=== PATIENT | female | born 1980 | race Caucasian/White ===

== ENCOUNTER 2016-08-30 12:10 | Emergency (ER) | payer BC, MEDICAID ==
[~2016-08-30] VITALS: Ht 162.6 cm; Wt 91.0 kg
[~2016-08-30 12:10] MED LIST: CEPH-443 PO; HYD25 PO; IBUP-1542 PO
[2016-08-30 12:13] VITALS: Ht 162.6 cm; Wt 91.0 kg
[2016-08-30] MEDS ORDERED: KETOROLAC 60 MG INJ IM STA (14:20)
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
[2016-08-30] MEDS ORDERED: NAPR-260 PO (16:06)
[2016-08-30] MEDS ORDERED: CYCL-319 PO (16:06)
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
--- NOTE | 2016-08-30 16:12 | RADRPT ---
PROCEDURE: XR Hip. CLINICAL INDICATION: pain TECHNIQUE: AP and frog lateral views of the right hip were performed. COMPARISON: None. FINDINGS: There is normal mineralization and alignment. No fracture or osseous lesion is identified. There are no significant degenerative changes in the hip. The soft tissues are unremarkable. There is an IUD in the pelvis. RPTAT: AA IMPRESSION: Unremarkable right hip. .Tobi Vitale MD, MD Date Time Electronically viewed and signed by .Tobi Vitale MD, on 08/30/2016 16:12 .S/
== END 2016-08-30 17:06 | disposition home or self-care (01) ==
LOC: FTE 12:10
DX: S89.92XA Unspecified injury of left lower leg, initial encounter (principal); S19.9XXA Unspecified injury of neck, initial encounter; S79.911A Unspecified injury of right hip, initial encounter; I10 Essential (primary) hypertension; V49.40XA Driver injured in collision with unspecified motor vehicles in traffic accident, initial encounter
CPT/HCPCS: 72040; 73510; 73562; 96372; J1885; Z7502

== ENCOUNTER 2017-01-18 05:52 | Emergency (ER) | payer BC, OTHER ==
[~2017-01-18] VITALS: Wt 92.5 kg
[~2017-01-18 05:52] MED LIST changes: +CYCL-319 PO; +NAPR-260 PO
[2017-01-18] MEDS ORDERED: SOD CHLORIDE 0.9% 1,000 ML IV STA (07:08)
[2017-01-18] MEDS ORDERED: ONDANSETRON 4 MG INJ IV STA (07:08)
[2017-01-18] MEDS ORDERED: KETOROLAC 30 MG INJ IV STA (07:08)
[2017-01-18] MEDS ORDERED: HYD25 PO (07:13)
[2017-01-18 07:24] LABS: ADD SCAN DIFF NO
[2017-01-18 07:25] LABS: BASOPHILS % 0.3 % (0.0-2.0); EOSINOPHILS # 0.1 10^3/ul (0.0-0.5); EOSINOPHILS % 1.3 % (0.0-7.0); HEMOGLOBIN 13.1 g/dl (12.0-16.0); LYMPHOCYTES # 1.5 10^3/ul (0.8-2.9); LYMPHOCYTES % 22.2 % (15.0-51.0); MEAN CORPUSCULAR HEMOGLOBIN 32.3 pg (29.0-33.0); MEAN CORPUSCULAR HGB CONC 33.6 g/dl (32.0-37.0); MEAN CORPUSCULAR VOLUME 96.3 fl (82.0-101.0); MEAN PLATELET VOLUME 12.6 fl (7.4-10.4); MONOCYTE # 0.5 10^3/ul (0.3-0.9); MONOCYTES % 7.8 % (0.0-11.0); NEUTROPHIL # 4.7 10^3/ul (1.6-7.5); NEUTROPHILS % 68.1 % (39.0-77.0); PLATELET COUNT 136 10^3/UL (140-415); RED BLOOD COUNT 4.05 10^6/ul (4.20-5.40); RED CELL DISTRIBUTION WIDTH 11.9 % (11.5-14.5); WHITE BLOOD COUNT 6.9 10^3/ul (4.8-10.8)
[2017-01-18 07:34] LABS: ADD UMIC NO; UR ASCORBIC ACID NEGATIVE (NEGATIVE); UR BILIRUBIN (Dip) NEGATIVE (NEGATIVE); UR BLOOD (Dip) NEGATIVE (NEGATIVE); UR CLARITY CLEAR (CLEAR); UR COLOR YELLOW (YELLOW); UR GLUCOSE (Dip) NEGATIVE (NEGATIVE); UR KETONES (Dip) NEGATIVE (NEGATIVE); UR LEUKOCYTE ESTERASE (Dip) NEGATIVE Leu/ul (NEGATIVE); UR NITRITE (Dip) NEGATIVE (NEGATIVE); UR SPECIFIC GRAVITY (Dip) 1.017 (1.003-1.030); UR TOTAL PROTEIN (Dip) NEGATIVE (NEGATIVE); UR UROBILINOGEN (Dip) NEGATIVE (NEGATIVE)
[2017-01-18 07:43] LABS: ALBUMIN 4.7 g/dl (3.3-4.9); ALBUMIN/GLOBULIN RATIO 1.62; BILIRUBIN,INDIRECT 0.2 mg/dl (0-1.1); BILIRUBIN,TOTAL 0.2 mg/dl (0.2-1.3); CALCIUM 9.2 mg/dl (8.4-10.2); CREATININE 0.77 mg/dl (0.44-1.00); POTASSIUM 4.2 mmol/L (3.5-5.1); TOTAL PROTEIN 7.6 g/dl (6.1-8.1)
--- NOTE | 2017-01-18 08:09 | RADRPT ---
PROCEDURE: Right Upper Quadrant Ultrasound. CLINICAL INDICATION: Abdominal Pain TECHNIQUE: Multiple real-time images were acquired of the patient's right upper quadrant abdomen a nd retroperitoneum utilizing a high resolution transducer. COMPARISON: None FINDINGS: The liver measures 16.9 cm, and demonstrates normal echogenicity. The main portal vein is patent wit h proper directional flow. There is no intrahepatic biliary ductal dilatation. The extrahepatic comm on bile duct measures 5 mm. The gallbladder is without stones, wall thickening, or pericholecystic fluid. The visualized pancreas is unremarkable. The right kidney measures 11.1 cm and demonstrates normal echotexture. There is no right renal calcu juan diego or hydronephrosis. The visualized abdominal aorta and IVC are grossly unremarkable. IMPRESSION: Unremarkable right upper quadrant abdominal ultrasound. No cholelithiasis or acute cholecystitis. Normal CBD. RPTAT: EE Physician Jesica Date Time Electronically viewed and signed by Physician Jesica on 01/18/2017 08:09 /
[2017-01-18] MEDS ORDERED: ONDA4TAB14 PO (08:25)
[2017-01-18] MEDS ORDERED: HYDR-902 PO (08:25)
[2017-01-18 08:38] VITALS: BP 169/99; PULSE 75; RESP 20
--- NOTE | 2017-01-18 10:10 | ERD ---
ER Documentation Chief Complaint Date/Time DATE: 01/18/17 TIME: 10:08 Chief Complaint AP x3 days. HTN HPI Patient is a 28-year-old female with hypertension who presents with abdominal pain. She has upper epigastric abdominal pain and feels bloating. She says that it moves from side to side. It is been there for the past 3 days. She has decreased intake by mouth because of decreased appetite. She said that she had an episode of vomiting which was yellow. She denies fevers. She has no diarrhea. Upon review of old medical records this is the patient's seventh visit to the ER since 2007. She has an appointment with her primary doctor today at 11:15 AM. ROS All systems reviewed and are negative except as per history of present illness. Medications Home Meds Active Scripts Ondansetron (Ondansetron Odt) 4 Mg Tab.rapdis, 4 MG PO Q6H Y for NAUSEA AND/OR VOMITING, #10 TAB Prov:GUSTAVO GOMEZ MD 01/18/17 Hydrocodone/Acetaminophen ([place] 10-325 Tablet) 1 Each Tablet, 1 TAB PO Q6H Y for PAIN, #7 TAB Prov:GUSTAVO GOMEZ MD 01/18/17 Reported Medications Hydrochlorothiazide* (Hydrochlorothiazide*) 25 Mg Tab, 25 MG PO DAILY, #30 TAB 01/18/17 Discontinued Scripts Cyclobenzaprine Hcl* (Cyclobenzaprine Hcl*) 10 Mg Tablet, 10 MG PO TID, #15 TAB Prov:FRAN MARTINES PA-C 08/30/16 Naproxen* (Naprosyn*) 500 Mg Tablet, 500 MG PO BID Y for PAIN AND/OR INFLAMMATION, #20 TAB Prov:FRAN MARTINES PA-C 08/30/16 Cephalexin* (Keflex*) 500 Mg Capsule, 500 MG PO QID for 7 Days, CAP Prov:CHRIST VAZQUEZ MD 07/12/16 Ibuprofen* (Ibuprofen*) 600 Mg Tablet, 600 MG PO Q8 for PAIN, #30 TAB Prov:CHRIST VAZQUEZ MD 07/12/16 Hydrochlorothiazide* (Hydrochlorothiazide*) 25 Mg Tab, 25 MG PO BID, #60 TAB Prov:CHRIST VAZQUEZ MD 07/12/16 Allergies Allergies: Coded Allergies: No Known Drug Allergy (Verified Allergy, Unknown, 01/18/17) PMhx/Soc History of Surgery: Yes (CSECTION) Anesthesia Reaction: No Hx Neurological Disorder: No Hx Respiratory Disorders: No Hx Cardiac Disorders: Yes (HTN) Hx Psychiatric Problems: No Hx Miscellaneous Medical Probl: Yes (ABNORMAL PAPSMEAR IN THE PAST WITH VB) Hx Alcohol Use: Yes (SOCIALLY ) Hx Substance Use: No Hx Tobacco Use: No Smoking Status: Never smoker FmHx Adopted and does not know family history Physical Exam Vitals Vital Signs Date Time Temp Pulse Resp B/P Pulse Ox O2 Delivery O2 Flow Rate FiO2 01/18/17 08:38 75 20 169/99 98 01/18/17 06:30 187/113 01/18/17 05:58 98.0 84 20 200/115 98 Physical Exam Const: Moderate distress secondary to abdominal pain Head: Atraumatic Eyes: Normal Conjunctiva ENT: Normal External Ears, Nose and Mouth. Neck: Full range of motion..~ No meningismus. Resp: Clear to auscultation bilaterally Cardio: Regular rate and rhythm, no murmurs Abd: Soft, epigastric tenderness to palpation without rebound or guarding Skin: No petechiae or rashes Back: No midline or flank tenderness Ext: No cyanosis, or edema Neur: Awake and alert Psych: Normal Mood and Affect Result Diagram: 01/18/17 0716 01/18/17 0716 Results 24 hrs Laboratory Tests Test 01/18/17 07:16 White Blood Count 6.910^3/ul Red Blood Count 4.0510^6/ul Hemoglobin 13.1g/dl Hematocrit 39.0% Mean Corpuscular Volume 96.3fl Mean Corpuscular Hemoglobin 32.3pg Mean Corpuscular Hemoglobin Concent 33.6g/dl Red Cell Distribution Width 11.9% Platelet Count 31948^3/UL Mean Platelet Volume 12.6fl Neutrophils % 68.1% Lymphocytes % 22.2% Monocytes % 7.8% Eosinophils % 1.3% Basophils % 0.3% Nucleated Red Blood Cells % 0.0/100WBC Neutrophils # 4.710^3/ul Lymphocytes # 1.510^3/ul Monocytes # 0.510^3/ul Eosinophils # 0.110^3/ul Basophils # 0.010^3/ul Nucleated Red Blood Cells # 0.010^3/ul Urine Color YELLOW Urine Clarity CLEAR Urine pH 6.0 Urine Specific [place] 1.017 Urine Ketones NEGATIVEmg/dL Urine Nitrite NEGATIVEmg/dL Urine Bilirubin NEGATIVEmg/dL Urine Urobilinogen NEGATIVEmg/dL Urine Leukocyte Esterase NEGATIVELeu/ul Urine Hemoglobin NEGATIVEmg/dL Urine Glucose NEGATIVEmg/dL Urine Total Protein NEGATIVEmg/dl Urine Test NEGATIVE Sodium Level 139mmol/L Potassium Level 4.2mmol/L Chloride Level 105mmol/L Carbon Dioxide Level 23mmol/L Anion Gap 15 Blood Urea Nitrogen 14mg/dl Creatinine 0.77mg/dl Glucose Level 101mg/dl Calcium Level 9.2mg/dl Total Bilirubin 0.2mg/dl Direct Bilirubin 0.00mg/dl Indirect Bilirubin 0.2mg/dl Aspartate Amino Transf (AST/SGOT) 20IU/L Alanine Aminotransferase (ALT/SGPT) 31IU/L Alkaline Phosphatase 50IU/L Total Protein 7.6g/dl Albumin 4.7g/dl Globulin 2.90g/dl Albumin/Globulin Ratio 1.62 Lipase 91U/L Current Medications Medications (Trade) Dose Ordered Sig/Vianney Route PRN Reason Start Time Stop Time Status Last Admin Dose Admin Sodium Chloride (NS) 1,000 ml @ 1,000 mls/hr Q1H STAT IV 01/18/17 07:08 01/18/17 08:07 DC 01/18/17 07:21 Ondansetron HCl (Zofran Inj) 4 mg ONCE STAT IV 01/18/17 07:08 01/18/17 07:09 DC 01/18/17 07:21 Ketorolac Tromethamine (Toradol) 30 mg ONCE STAT IV 01/18/17 07:08 01/18/17 07:09 DC 01/18/17 07:21 Procedures/MDM Ultrasound of the gallbladder is normal per radiology. Patient is a 36-year-old female presents with abdominal pain. The patient has upper epigastric abdominal pain and vomiting. She denies any fevers. At this point I doubt cholecystitis, pancreatitis, appendicitis, or bowel obstruction. I doubt or ectopic . I believe outpatient management is appropriate. She will be given a prescription for [place] and Zofran. She should follow-up at her scheduled appointment today at 1115. She can return for any worsening symptoms. Departure Diagnosis: Primary Impression: Abdominal pain Abdominal location: epigastric Qualified Code: R10.13 - Epigastric pain Condition: Fair Patient Instructions: Abdominal Pain Referrals: Your doctor Additional Instructions: Keep the appointment with your doctor scheduled for today at 11:15AM. GUSTAVO GOMEZ MD Jan 18, 2017 10:10
== END 2017-01-18 09:12 | disposition home or self-care (01) ==
LOC: E/R 05:52
DX: R10.13 Epigastric pain (principal); R11.10 Vomiting, unspecified; I10 Essential (primary) hypertension
CPT/HCPCS: 36415; 76705; 80053; 81003; 83690; 84703; 85025; 96374; 96375; J1885; J2405; J7030; Z7502

== ENCOUNTER 2017-02-04 23:11 | Emergency (ER) | payer OTHER ==
[~2017-02-04] VITALS: Ht 162.6 cm; Wt 89.5 kg
[~2017-02-04 23:11] MED LIST changes: -CEPH-443 PO; -CYCL-319 PO; +HYDR-902 PO; -IBUP-1542 PO; -NAPR-260 PO; +ONDA4TAB14 PO
[2017-02-04 23:15] VITALS: Ht 162.6 cm; Wt 89.5 kg
[2017-02-05] MEDS ORDERED: IBUP-1542 PO (00:13)
[2017-02-05] MEDS ORDERED: AMOX1TAB10 PO (00:13)
--- NOTE | 2017-02-05 00:13 | ERD ---
ER Documentation Chief Complaint Date/Time DATE: 02/05/17 TIME: 00:12 Chief Complaint sore throat x 3 days HPI Sore throat for 3 days. Mild difficulty swallowing. No difficulty breathing. No sick contacts. No fevers no chills. ROS All systems reviewed and are negative except as per history of present illness. Medications Home Meds Active Scripts Ondansetron (Ondansetron Odt) 4 Mg Tab.rapdis, 4 MG PO Q6H Y for NAUSEA AND/OR VOMITING, #10 TAB Prov:GUSTAVO GOMEZ MD 01/18/17 Hydrocodone/Acetaminophen ([place] 10-325 Tablet) 1 Each Tablet, 1 TAB PO Q6H Y for PAIN, #7 TAB Prov:GUSTAVO GOMEZ MD 01/18/17 Reported Medications Hydrochlorothiazide* (Hydrochlorothiazide*) 25 Mg Tab, 25 MG PO DAILY, #30 TAB 01/18/17 Allergies Allergies: Coded Allergies: No Known Drug Allergy (Verified Allergy, Unknown, 01/18/17) PMhx/Soc History of Surgery: Yes (CSECTION) Anesthesia Reaction: No Hx Neurological Disorder: No Hx Respiratory Disorders: No Hx Cardiac Disorders: Yes (HTN) Hx Psychiatric Problems: No Hx Miscellaneous Medical Probl: Yes (ABNORMAL PAPSMEAR IN THE PAST WITH VB) Hx Alcohol Use: Yes (SOCIALLY ) Hx Substance Use: No Hx Tobacco Use: No Smoking Status: Never smoker Physical Exam Vitals Vital Signs Date Time Temp Pulse Resp B/P Pulse Ox O2 Delivery O2 Flow Rate FiO2 02/04/17 23:15 97.8 87 20 132/88 98 Physical Exam Const: [] Head: Atraumatic Eyes: Normal Conjunctiva ENT: Right peritonsillar exudate with no uvular deviation. Mild erythema on left side as well. Neck: Full range of motion..~ No meningismus. Resp: Clear to auscultation bilaterally Cardio: Regular rate and rhythm, no murmurs Abd: Soft, non tender, non distended. Normal bowel sounds Skin: No petechiae or rashes Back: No midline or flank tenderness Ext: No cyanosis, or edema Neur: Awake and alert Psych: Normal Mood and Affect Procedures/MDM Medical decision-making: Patient with exudative pharyngitis. Patient be discharged home with Augmentin and Motrin. Follow-up with PCP. Return for worsening symptoms. Departure Diagnosis: Primary Impression: Sore throat Condition: Stable FRAN OBRIEN Feb 05, 2017 00:13
== END 2017-02-05 00:21 | disposition home or self-care (01) ==
LOC: E/R 23:11
DX: J02.9 Acute pharyngitis, unspecified (principal); I10 Essential (primary) hypertension
CPT/HCPCS: 99283

== ENCOUNTER 2017-03-11 10:20 | Emergency (ER) | END 2017-03-11 11:01 | disposition home or self-care (01) | DX: L73.9 Follicular disorder, unspecified (principal); I10 Essential (primary) hypertension | CPT/HCPCS: Z7502; Z7610 ==

== ENCOUNTER 2017-07-17 13:54 | Emergency (ER) | payer OTHER ==
[~2017-07-17] VITALS: Ht 165.1 cm; Wt 95.0 kg
[~2017-07-17 13:54] MED LIST changes: +AMOX1TAB10 PO; +CEPH-443 PO; -HYD25 PO; +HYDR25TA6 PO; +IBUP-1542 PO; +SULF1TAB31 PO
[2017-07-17 14:00] VITALS: Ht 165.1 cm; Wt 95.0 kg
[2017-07-17] MEDS ORDERED: IBUPROFEN 600 MG TAB PO ONE (15:30)
--- NOTE | 2017-07-17 16:38 | RADRPT ---
PROCEDURE: XR Left Ribs Series CLINICAL INDICATION: Left anterior inframammary rib pain. TECHNIQUE: 2 views of the left ribs were obtained. The images were reviewed on a PACS workstation. COMPARISON: None. FINDINGS: Osseous structures: The left ribs appear intact with no fracture or destructive process evident. Lung uflton: The lung fulton are clear. Pleural spaces: No pneumothorax or pleural fluid accumulation is evident. Soft Tissues: Appear unremarkable. IMPRESSION: Unremarkable Left rib series. Physician Renuka Date Time Electronically viewed and signed by Physician Renuka on 07/17/2017 16:37 /
[2017-07-17] MEDS ORDERED: IBUP-1542 PO (16:52)
[2017-07-17 17:14] VITALS: BP 122/64; PULSE 75; RESP 19; TEMP 98.3
--- NOTE | 2017-07-17 20:17 | ERD ---
ER Documentation Chief Complaint Chief Complaint left upper abd pain since sunday HPI 36-year-old female complaining of left-sided rib pain 3 days. Patient described pain as soreness, worse with movement. She gets sharp, numbing pain when she moves. Pain is worse when she is sleeping on that side. Patient stated that she rode a mechanical bull the evening prior to the onset of the pain. She did not fall or had any injury that she is aware of. Denies cough or shortness of breath. ROS All systems reviewed and are negative except as per history of present illness. Medications Home Meds Active Scripts Ibuprofen* (Motrin*) 600 Mg Tab, 600 MG PO Q6H Y for PAIN AND OR ELEVATED TEMP, #30 TAB Prov:SAGE PUENTES NP 07/17/17 Cephalexin* (Keflex*) 500 Mg Capsule, 500 MG PO QID for 5 Days, CAP Prov:DORIS LATIF MD 03/11/17 Sulfamethoxazole/Trimethoprim* (Bactrim Ds* Tablet) 1 Each Tablet, 1 TAB PO BID for 7 Days, #14 TAB Prov:DORIS LATIF MD 03/11/17 Ibuprofen* (Motrin*) 600 Mg Tab, 600 MG PO Q6, #30 TAB Prov:FRAN OBRIEN 02/05/17 Amoxicillin/Potassium Clav (Amox-Clav 875-125 mg Tablet) 875-125 mg Tab, 1 TAB PO BID for 7 Days, #14 TAB Prov:FRAN OBRIEN 02/05/17 Ondansetron (Ondansetron Odt) 4 Mg Tab.rapdis, 4 MG PO Q6H Y for NAUSEA AND/OR VOMITING, #10 TAB Prov:GUSTAVO GOMEZ MD 01/18/17 Hydrocodone/Acetaminophen ([place] 10-325 Tablet) 1 Each Tablet, 1 TAB PO Q6H Y for PAIN, #7 TAB Prov:GUSTAVO GOMEZ MD 01/18/17 Reported Medications Hydrochlorothiazide* (Hydrochlorothiazide*) 25 Mg Tab, 25 MG PO DAILY, #30 TAB 01/18/17 Allergies Allergies: Coded Allergies: No Known Drug Allergy (Verified Allergy, Unknown, 03/11/17) PMhx/Soc History of Surgery: Yes (CSECTION) Anesthesia Reaction: No Hx Neurological Disorder: No Hx Respiratory Disorders: No Hx Cardiac Disorders: Yes (HTN) Hx Psychiatric Problems: No Hx Miscellaneous Medical Probl: Yes (ABNORMAL PAPSMEAR IN THE PAST WITH VB) Hx Alcohol Use: Yes (SOCIALLY ) Hx Substance Use: No Hx Tobacco Use: No Physical Exam Vitals Vital Signs Date Time Temp Pulse Resp B/P Pulse Ox O2 Delivery O2 Flow Rate FiO2 07/17/17 17:14 98.3 75 19 122/64 100 Room Air 07/17/17 14:00 98.1 88 16 159/79 98 Physical Exam General: Well-developed, well-nourished, conscious and coherent, in no distress Skin: Warm and dry without rash, good texture and turgor Head: Normocephalic without evidence of trauma Eyes: Sclera and conjunctivae normal; pupils equal, round, and reactive to light; extraocular movements are intact Chest: Normal AP diameter. Good expansion without retractions. Nontender. Lungs are clear to auscultate bilaterally with good tidal volume. Chest wall tender along the fifth intercostal, from anterior axillary to midclavicular, along her bra line. Heart: Regular rate and rhythm. No murmur, rub, or gallops heard Extremities: Full range of motion. Good strength bilaterally. No clubbing, cyanosis, or edema. Peripheral pulses are intact. Sensation intact Neuro: Alert and oriented 4, GCS 15. Cranial nerves grossly intact. Motor and sensory exams nonfocal. Moves all extremities. Speech clear. Gait normal Results 24 hrs Current Medications Medications (Trade) Dose Ordered Sig/Vianney Route PRN Reason Start Time Stop Time Status Last Admin Dose Admin Ibuprofen (Motrin) 600 mg ONCE ONCE PO 07/17/17 15:30 07/17/17 15:31 DC 07/17/17 15:45 PROCEDURE: XR Left Ribs Series CLINICAL INDICATION: Left anterior inframammary rib pain. TECHNIQUE: 2 views of the left ribs were obtained. The images were reviewed on a PACS workstation. COMPARISON: None. FINDINGS: Osseous structures: The left ribs appear intact with no fracture or destructive process evident. Lung fulton: The lung fulton are clear. Pleural spaces: No pneumothorax or pleural fluid accumulation is evident. Soft Tissues: Appear unremarkable. IMPRESSION: Unremarkable Left rib series. Physician Renuka Date Time Electronically viewed and signed by Physician Renuka on 07/17/2017 16:37 RH/ CC: SAGE PUENTES HEAD CAGER Procedures/MDM Well-appearing 36-year-old female presented ED with left-sided rib pain. Pain onset shortly after patient was riding a mechanical bull. Patient does have a rather large breasts, and wearing a bra with heavy and stiff underwire. I suspect patient has sustained a mild contusion from bull riding. I doubt she has rib fracture. However, patient insists on obtaining a x-ray. X-ray of the left ribs was ordered, and was negative. Patient appears well, stable for discharge and outpatient management. Medical decision making shared with patient and family. Education provided to patient and family. Patient and family expressed understanding of the plan. Medications on discharge: Ibuprofen. Follow-up: Primary care provider in 2-3 days or return to ED if worse. Disclaimer: Inadvertent spelling and grammatical errors are likely due to EHR/ dictation software use and do not reflect on the overall quality of patient care. Also, please note that the electronic time recorded on this note does not necessarily reflect the actual time of the patient encounter. Departure Diagnosis: Primary Impression: Rib contusion Condition: Stable Patient Instructions: Rib Contusion Referrals: [facility] YOU HAVE RECEIVED A MEDICAL SCREENING EXAM AND THE RESULTS INDICATE THAT YOU DO NOT HAVE A CONDITION THAT REQUIRES URGENT TREATMENT IN THE EMERGENCY DEPARTMENT. FURTHER EVALUATION AND TREATMENT OF YOUR CONDITION CAN WAIT UNTIL YOU ARE SEEN IN YOUR DOCTORS OFFICE WITHIN THE NEXT 1-2 DAYS. IT IS YOUR RESPONSIBILITY TO MAKE AN APPOINTMENT FOR FOLOW-UP CARE. IF YOU HAVE A PRIMARY DOCTOR --you should call your primary doctor and schedule an appointment IF YOU DO NOT HAVE A PRIMARY DOCTOR YOU CAN CALL OUR PHYSICIAN REFERRAL HOTLINE AT IF YOU CAN NOT AFFORD TO SEE A PHYSICIAN YOU CAN CHOSE FROM THE FOLLOWING [facility] [address] [facility]. [facility] [address] [facility] [address] [facility] [facility] [address] [facility]. [facility] [address] [facility]. [facility] [address] Additional Instructions: Call your primary care doctor TOMORROW for an appointment during the next 2-3 days.See the doctor sooner or return here if your condition worsens before your appointment time. SAGE PUENTES. NILDA Jul 17, 2017 20:16
== END 2017-07-17 17:19 | disposition home or self-care (01) ==
LOC: FTE 13:54
DX: S20.212A Contusion of left front wall of thorax, initial encounter (principal); I10 Essential (primary) hypertension; X58.XXXA Exposure to other specified factors, initial encounter; Y92.9 Unspecified place or not applicable
CPT/HCPCS: 71100; Z7502; Z7610

== ENCOUNTER 2017-12-21 10:14 | Emergency (ER) | END 2017-12-21 11:25 | disposition home or self-care (01) ==

== ENCOUNTER 2018-08-14 09:24 | Emergency (ER) | payer SELFPAY ==
[~2018-08-14] VITALS: Ht 165.1 cm; Wt 93.0 kg
[~2018-08-14 09:24] MED LIST changes: +HYDR-3980 PO; -HYDR-902 PO
[2018-08-14 09:36] VITALS: BP 167/107; PULSE 109; RESP 25; Ht 165.1 cm; Wt 93.0 kg
[2018-08-14] MEDS ORDERED: ALBUTEROL 0.083% (NEB) 2.5 MG/3 ML AMP HHN STA (09:53)
[2018-08-14] MEDS ORDERED: IPRATROPIUM (NEB) 0.5 MG/2.5 ML AMP HHN ONE (10:00)
[2018-08-14] MEDS ORDERED: DEXAMETHASONE 10 MG/ML 1 ML INJ IM ONE (10:00)
[2018-08-14] MEDS ORDERED: ALBU8.5H8 INH (10:24)
[2018-08-14] MEDS ORDERED: PROM6.2515 PO (10:24)
[2018-08-14] MEDS ORDERED: BENZ-6 PO (10:24)
[2018-08-14] MEDS ORDERED: PRED20TA PO (10:24)
--- NOTE | 2018-08-14 10:32 | ERD ---
ER Documentation Chief Complaint Chief Complaint productive cough with greenish, thick sputum, chest congestion HPI 37-year-old female presenting with productive cough times 4 days. Patient states that she has had shortness of breath but no history of respiratory problems or asthma in the past. Denies any fevers. Denies runny nose. Has not taken medications for her symptoms. Denies other medical problems. NKDA. Surgical history . Social history denies ROS All systems reviewed and are negative except as per history of present illness. Medications Home Meds Active Scripts Promethazine Hcl* (Promethazine Hcl* Syrup) 6.25 Mg/5 Ml Syrup, 6.25 MG PO Q6H PRN for COUGH, #100 ML Prov:MARGIE BARKSDALE PA-C 08/14/18 Benzonatate* (Tessalon Perle*) 100 Mg Capsule, 100 MG PO Q8H PRN for COUGH, #30 CAP Prov:MARGIE BARKSDALE PA-C 08/14/18 Albuterol Sulfate* (Proair HFA*) 8.5 Gm Hfa.aer.ad, 2 PUFF INH Q4, #1 INHALER Prov:MARGIE BARKSDALE PA-C 08/14/18 Prednisone* (Prednisone*) 20 Mg Tab, 40 MG PO DAILY for 4 Days, TAB Prov:MARGIE BARKSDALE PA-C 08/14/18 Ibuprofen* (Motrin*) 600 Mg Tab, 600 MG PO Q6, #30 TAB Prov:JOSE MCCLENDON PA-C 12/21/17 Ibuprofen* (Motrin*) 600 Mg Tab, 600 MG PO Q6H PRN for PAIN AND OR ELEVATED TEMP, #30 TAB Prov:SAGE PUENTES NP 07/17/17 Cephalexin* (Keflex*) 500 Mg Capsule, 500 MG PO QID for 5 Days, CAP Prov:DORIS LATIF MD 03/11/17 Sulfamethoxazole/Trimethoprim* (Bactrim Ds* Tablet) 1 Each Tablet, 1 TAB PO BID for 7 Days, #14 TAB Prov:DORIS LATIF MD 03/11/17 Ibuprofen* (Motrin*) 600 Mg Tab, 600 MG PO Q6, #30 TAB Prov:FRAN OBRIEN 02/05/17 Amoxicillin/Potassium Clav (Amox-Clav 875-125 mg Tablet) 875-125 mg Tab, 1 TAB PO BID for 7 Days, #14 TAB Prov:FARN OBRIENEvan 02/05/17 Ondansetron (Ondansetron Odt) 4 Mg Tab.rapdis, 4 MG PO Q6H PRN for NAUSEA AND/OR VOMITING, #10 TAB Prov:GUSTAVO GOMEZ MD 01/18/17 Hydrocodone/Acetaminophen ([place] 10-325 Tablet) 1 Each Tablet, 1 TAB PO Q6H PRN for PAIN, #7 TAB Prov:GUSTAVO GOMEZ MD 01/18/17 Reported Medications Hydrochlorothiazide* (Hydrochlorothiazide*) 25 Mg Tab, 25 MG PO DAILY, #30 TAB 01/18/17 Allergies Allergies: Coded Allergies: No Known Drug Allergy (Verified Allergy, Unknown, 03/11/17) PMhx/Soc History of Surgery: Yes (CSECTION) Anesthesia Reaction: No Hx Neurological Disorder: No Hx Respiratory Disorders: Yes (hx +flu) Hx Cardiac Disorders: Yes (HTN) Hx Psychiatric Problems: No Hx Miscellaneous Medical Probl: Yes (ABNORMAL PAPSMEAR IN THE PAST WITH VB) Hx Alcohol Use: Yes (SOCIALLY ) Hx Substance Use: No Hx Tobacco Use: No Smoking Status: Never smoker FmHx Family History: No diabetes, No coronary disease, No other Physical Exam Vitals Vital Signs Date Temp Pulse Resp B/P (MAP) Pulse Ox O2 O2 Flow FiO2 Time Delivery Rate 08/14/18 78 18 96 21 10:03 08/14/18 98.9 109 25 167/107 98 09:36 (127) Physical Exam GENERAL: The patient is well-appearing, well-nourished, in no acute distress HEENT: Atraumatic. Conjunctivae are pink. Pupils equal, round, and reactive to light. There is no scleral icterus. Tympanic membranes clear bilaterally. Oropharynx clear. NECK: C-spine is soft and supple. There is no meningismus. There is no cervical lymphadenopathy. CHEST: Diffuse wheezing her auscultation with no focal rhonchi and no retractions. HEART: Regular rate and rhythm. No murmurs, clicks, rubs or gallops. Results 24 hrs Current Medications Medications Dose Sig/Vianney Start Time Status Last (Trade) Ordered Route PRN Stop Time Admin Dose Reason Admin 10 mg ONCE ONCE 08/14/18 DC 08/14/18 Dexamethasone IM 10:00 10:01 (Decadron) 08/14/18 10:01 Albuterol 5 mg ONCE STAT 08/14/18 DC 08/14/18 (Proventil HHN 09:53 10:01 0.083% (Neb)) 08/14/18 09:54 Ipratropium 0.5 mg ONCE ONCE 08/14/18 DC 08/14/18 [place] HHN 10:00 10:01 (Atrovent 08/14/18 10:01 0.02% (Neb)) Procedures/MDM ER course: Albuterol and Atrovent breathing treatment Decadron given in ED. Patient symptoms improved. DIAGNOSTIC IMAGING REPORT Patient: MAKAYLA LUJAN : 1980 Age: 37 Sex: F MR #: [id number] DOS: 08/14/18 0953 Ordering MD: DEMETRI BARKSDALE PA-C Location: [facility] Room/Bed: PROCEDURE: XR Chest. CLINICAL INDICATION: Cough TECHNIQUE: Single frontal view of the chest was obtained COMPARISON: CR CHEST 07/12/2016 FINDINGS: The heart and mediastinum are within normal limits. The lungs are clear. There is no pleural effusion or pneumothorax. RPTAT: AA IMPRESSION: No acute disease. MDM: 37-year-old female presenting with productive cough. Patient had tight breath sounds heard on auscultation. Chest x-ray is within normal limits and I have low suspicion for pneumonia. Oxygen saturation is stable at 90% on room air patient did not have retractions. I have low suspicion for respiratory distress or hypoxia. Patient likely has viral syndrome which is causing reactive airway disease. Patient is told if symptoms change or worsen to return to the ER immediately. I do not feel that antibiotics are indicated as patient is afebrile and there is no infiltration noted on chest x-ray. All questions answered at discharge Departure Diagnosis: Primary Impression: Cough Condition: Stable Patient Instructions: Cough, Chronic, Uncertain Cause, (Adult) Referrals: COMM[facility] CLINICS YOU HAVE RECEIVED A MEDICAL SCREENING EXAM AND THE RESULTS INDICATE THAT YOU DO NOT HAVE A CONDITION THAT REQUIRES URGENT TREATMENT IN THE EMERGENCY DEPARTMENT. FURTHER EVALUATION AND TREATMENT OF YOUR CONDITION CAN WAIT UNTIL YOU ARE SEEN IN YOUR DOCTORS OFFICE WITHIN THE NEXT 1-2 DAYS. IT IS YOUR RESPONSIBILITY TO MAKE AN APPOINTMENT FOR FOLOW-UP CARE. IF YOU HAVE A PRIMARY DOCTOR --you should call your primary doctor and schedule an appointment IF YOU DO NOT HAVE A PRIMARY DOCTOR YOU CAN CALL OUR PHYSICIAN REFERRAL HOTLINE AT IF YOU CAN NOT AFFORD TO SEE A PHYSICIAN YOU CAN CHOSE FROM THE FOLLOWING [facility] [address] [facility] [address] [facility] [address] [facility] [address] [facility] [address] [facility]. [facility]. [address] Additional Instructions: FOLLOW UP WITH YOUR PRIMARY CARE PHYSICIAN TOMORROW.Return to this facility if you are not improving as expected. MARGIE BARKSDALE PA-C Aug 14, 2018 10:32
== END 2018-08-14 10:41 | disposition home or self-care (01) ==
LOC: FTE 09:24
DX: R05 Cough (principal); I10 Essential (primary) hypertension
CPT/HCPCS: 71045; 94664; 96372; 99284; J1100